=== PATIENT | male | born 1995 | race Caucasian/White ===

== ENCOUNTER 2019-10-14 19:33 | Emergency (ER) | payer BC ==
[~2019-10-14] VITALS: Ht 170.2 cm; Wt 72.6 kg
[2019-10-14 19:33] VITALS: BP 128/77
--- NOTE | 2019-10-14 20:29 | PHYS DOC ---
Past History Past Medical History: No Pertinent History Past Surgical History: Other Additional Past Surgical Histo: left arm Alcohol Use: None Drug Use: None Adult General Chief Complaint Chief Complaint: ALLERGIC REACTION HPI HPI Patient is a 24 year old male who presents with complaint of sore throat. The patient states that he was eating dinner earlier this evening and ate something that contained shrimp without his knowledge. 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 Has not had any recent allergic reaction but states that he has been tested recently and told that he is still allergic to shellfish and should not consume any. The patient states that after finding out he consumed shellfish he became concerned and thus came to the emergency department for further evaluation. He states that he has not experienced any symptoms since eating shrimp. He does note that he has been having sore throat and drainage over the past 2 days prior to this exposure but denies any fever. He states currently is not having any throat swelling or difficulty breathing and has noticed no rash. Review of Systems Review of Systems Constitutional: Denies fever or chills [] Eyes: Denies change in visual acuity, redness, or eye pain [] HENT: Sore throat, postnasal drip[] Respiratory: Denies cough or shortness of breath [] Cardiovascular: Denies chest pain or edema[] GI: Denies abdominal pain, nausea, vomiting, bloody stools or diarrhea [] : Denies dysuria or hematuria [] Musculoskeletal: Denies back pain or joint pain [] Integument: Denies rash or skin lesions [] Neurologic: Denies headache, focal weakness or sensory changes [] All other systems were reviewed and found to be within normal limits, except as documented in this note. Current Medications Current Medications Current Medications Medications (Trade) Dose Ordered Sig/Aquiles Start Time Stop Time Status Last Admin Dose Admin Dexamethasone Sodium Phosphate (Decadron) 12 mg 1X ONCE 10/14/19 20:30 10/14/19 20:31 UNV Diphenhydramine HCl (Benadryl) 25 mg 1X ONCE 10/14/19 20:30 10/14/19 20:31 UNV Famotidine (Pepcid) 20 mg 1X ONCE 10/14/19 20:30 10/14/19 20:31 UNV Allergies Allergies Allergies Coded Allergies Type Severity Reaction Last Updated Verified shrimp Allergy Unknown 10/14/19 Yes Physical Exam Physical Exam Constitutional: Alert, afebrile, no acute distress. [] HENT: Normocephalic, atraumatic, bilateral external ears normal, oropharynx mildly erythematous, bilateral tonsils 1+ with no exudates, nose normal. [] Eyes: PERRLA, EOMI, conjunctiva normal, no discharge. [] Neck: Normal range of motion, no tenderness, supple, no stridor. [] Cardiovascular:Heart rate regular rhythm, no murmur [] Lungs & Thorax: Bilateral breath sounds clear to auscultation [] Abdomen: Bowel sounds normal, soft, no tenderness, no masses, no pulsatile masses. [] Skin: Warm, dry, no erythema, no rash. [] Back: No tenderness, no CVA tenderness. [] Extremities: No tenderness, no cyanosis, no clubbing, ROM intact, no edema. [] Neurologic: Alert and oriented X 3, normal motor function, normal sensory function, no focal deficits noted. [] Current Patient Data Vital Signs Vital Signs Date Time Temp Pulse Resp B/P (MAP) Pulse Ox O2 Delivery O2 Flow Rate FiO2 10/14/19 19:33 99.1 78 18 100 Room Air Lab Results Laboratory Tests Test 10/14/19 20:30 Group A Streptococcus Rapid Negative Current Medications Medications (Trade) Dose Ordered Sig/Aquiles Route PRN Reason Start Time Stop Time Status Last Admin Dose Admin Dexamethasone Sodium Phosphate (Decadron) 12 mg 1X ONCE IM 10/14/19 20:30 10/14/19 20:38 DC 10/14/19 20:33 Diphenhydramine HCl (Benadryl) 25 mg 1X ONCE PO 10/14/19 20:30 10/14/19 20:38 DC 10/14/19 20:33 Famotidine (Pepcid) 20 mg 1X ONCE PO 10/14/19 20:30 10/14/19 20:38 DC 10/14/19 20:34 EKG EKG Not performed[] Radiology/Procedures Radiology/Procedures Not performed[] Course & Med Decision Making Course & Med Decision Making Pertinent Labs and Imaging studies reviewed. (See chart for details) Patient monitored in the emergency department with no remarkable events to report. Due to history of allergic reaction, the patient was administered a one-time dose of IM Decadron and was given oral Pepcid and Benadryl in the emergency department. Rapid strep testing negative. The patient's symptoms appear consistent with viral upper respiratory infection. Patient with no evidence of severe allergic reaction. Advised patient to continue on oral Pepcid and Benadryl as needed for itching or watering eyes. Patient also was prescribed EpiPen to have on hand in the event of a possible severe allergic reaction. Advised follow-up with primary doctor in 1 week for reevaluation and advised return to emergency department for any worsening symptoms. Patient was understanding and in agreement with treatment plan.[] Dragon Disclaimer Dragon Disclaimer This electronic medical record was generated, in whole or in part, using a voice recognition dictation system. Departure Departure: Impression: Primary Impression: Upper respiratory infection Additional Impression: Feared condition not demonstrated Disposition: 01 HOME, SELF-CARE Condition: STABLE Referrals: PCP,NO (PCP) Patient Instructions: Upper Respiratory Infection, Adult Additional Instructions: Follow-up with your primary doctor in 1 week for reevaluation. Return to the emergency department for any worsening symptoms. Scripts Epinephrine (EPIPEN 2-CATINA) 0.3 Mg/0.3 Ml Auto.injct 1 SYR IM ONCE for 1 Day, #1 PACKET 0 Refills Prov: CATRACHO HOWARD MD 10/14/19 Problem Qualifiers Primary Impression: Upper respiratory infection URI type: unspecified URI Qualified Codes: J06.9 - Acute upper respiratory infection, unspecified CATRACHO HOWARD MD Oct 14, 2019 20:28
[2019-10-14] MEDS ORDERED: diphenhydrAMINE HCL 25 MG CAPSULE PO ONE (20:30)
[2019-10-14] MEDS ORDERED: FAMOTIDINE 20 MG TABLET PO ONE (20:30)
[2019-10-14] MEDS ORDERED: DEXAMETHASONE SOD PHOS 4 MG/ML VIAL IM ONE (20:30)
[2019-10-14] MEDS ORDERED: EPIN0.3A4 IM (21:54)
== END 2019-10-14 22:10 | disposition home or self-care (01) ==
LOC: ER 19:33
DX: J06.9 Acute upper respiratory infection, unspecified (principal); Z91.013 Allergy to seafood
CPT/HCPCS: 87070; 87880; 96372; 99283; J1100; Q0163

== ENCOUNTER 2019-12-02 04:26 | Emergency (ER) | payer BC ==
[~2019-12-02] VITALS: Ht 170.2 cm; Wt 74.8 kg
[~2019-12-02 04:26] MED LIST: EPIN0.3A4 IM
--- NOTE | 2019-12-02 04:33 | PHYS DOC ---
Past History Past Medical History: No Pertinent History Past Surgical History: Other Additional Past Surgical Histo: left arm Alcohol Use: None Drug Use: None Adult General Chief Complaint Chief Complaint: ".. I ve been sick for last 2- 3 days.. nausea, vomiting... and diarrhea that will not stop... now my gut just hurt... it more up above my belly button..." HPI HPI Patient is a 24 year old male who presents with above hx and complaints of generalized abdomen pain for the last 3 days. Patient denies any intake of bad food. Recent travel to [facility] to visit his mother who is getting a kidney removed. No specific ill contacts with animals or other individuals other then his visits at the hospital. Patient states he not had abdomen pain like this before. His significant other also ate the same food that he did but she is not sick. Patient denies any dark or tarry stools. Patient states he is defecating disappear water. Has been able tolerate by mouth because it exacerbates his epigastric pain. Patient states he is normally healthy. No history immunosuppression. Does admit to using marijuana for his nausea. Patient denies heavy NSAID use. Patient did not get a flu vaccination this year. Review of Systems Review of Systems Constitutional: Subjective complaints of fever Eyes: Denies change in visual acuity, redness, or eye pain [] HENT: Denies nasal congestion or sore throat [] Respiratory: Denies cough or shortness of breath [] Cardiovascular: No additional information not addressed in HPI [] GI: Complaints of generalized abdominal pain, nausea, vomiting, and watery diarrhea [] : Denies dysuria or hematuria [] Musculoskeletal: Denies back pain or joint pain [] Integument: Denies rash or skin lesions [] Neurologic: Denies headache, focal weakness or sensory changes [] Endocrine: Denies polyuria or polydipsia [] All other systems were reviewed and found to be within normal limits, except as documented in this note. Family History Family History Mother recently had kidney failure Current Medications Current Medications See nursing for home meds Allergies Allergies Allergies Coded Allergies Type Severity Reaction Last Updated Verified shrimp Allergy Unknown 10/14/19 Yes Physical Exam Physical Exam Constitutional: Well developed, well nourished, moderate acute distress, non- toxic appearance. [] HENT: Normocephalic, atraumatic, bilateral external ears normal, oropharynx dry, no oral exudates, nose normal. [] Eyes: PERRLA, EOMI, conjunctiva normal, no discharge. [] Neck: Normal range of motion, no tenderness, supple, no stridor. [] Cardiovascular: Tachycardia Heart rate regular rhythm, no murmur [] Lungs & Thorax: Bilateral breath sounds equal apex with few scattered wheezes on auscultation [] Abdomen: Very Hyperactive Bowel sounds , soft, generalized tenderness, no masses, no pulsatile masses. [] Rebound to epigastric area Skin: Warm, dry, no erythema, no rash. [] Back: No tenderness, no CVA tenderness. [] Extremities: No tenderness, no cyanosis, no clubbing, ROM intact, no edema. No psoas sign Neurologic: Alert and oriented X 3, normal motor function, normal sensory function, no focal deficits noted. [] Psychologic: Affect anxious, judgement normal, mood normal. [] EKG EKG [] Radiology/Procedures Radiology/Procedures [][place] [address] IMAGING REPORT Signed PATIENT: LALY OG ACCOUNT: [id number] : 1995 LOCATION: ER AGE: 24 SEX: M EXAM STATUS: REG ER ORD. PHYSICIAN: GEOVANI BARRERA MD REASON: Abdomen pain, nausea, vomiting PROCEDURE: ACUTE ABDOMEN SERIES Three-view acute abdominal series HISTORY: Abdominal pain, nausea and vomiting 3 views were taken for an acute abdominal series. Lungs are clear. Heart is normal in size. There is no effusion. There is no free air on the upright view of the abdomen or abnormal air-fluid levels. Bowel pattern is normal. There are no abnormal calcifications. Spine view of the abdomen is unremarkable. IMPRESSION: 1. No acute chest disease. 2. No bowel obstruction or acute finding in the abdomen. Electronically signed by: Mariusz Costello MD (12/02/2019 5:32 AM) [facility] DICTATED AND SIGNED BY: MARIUSZ COSTELLO MD DATE: 12/02/19 0532 CC: GEOVANI BARRERA MD; PCP,NO ~ Course & Med Decision Making Course & Med Decision Making Pertinent Labs and Imaging studies reviewed. (See chart for details) Pt. remain on a clear fluid diet only. Take Zantac 300 mg twice day. Carafate 1 g 4 times a day. Use [id number] Pepto-Bismol for diarrhea episodes. Follow-up stool cultures. Follow-up primary care. Return if any concerns. Take Tylenol for pain. For marked pain may take Percocet. Take Zofran for active vomiting. Must remain on clear fluid diet no solids no milk products must allow bowel rest. If no improvement will need reexam. Impression : 1. Abdomen Pain 2. Acute gastroenteritis 3. Dehydration 4. Viral Syndrome [] Dragon Disclaimer Dragon Disclaimer This electronic medical record was generated, in whole or in part, using a voice recognition dictation system. Departure Departure: Disposition: 01 HOME/RESIDENCE PRIOR TO ADM Condition: STABLE Referrals: PCP,DIAN (PCP) Scripts Sucralfate (CARAFATE) 1 Gm Tablet 1 TAB PO QID for gastritis for 30 Days, #120 TAB 0 Refills Prov: GEOVANI BARRERA MD 12/02/19 Ranitidine Hcl (ZANTAC) 150 Mg Tablet 300 MG PO BID for gastritis for 30 Days, #120 TAB Prov: GEOVANI BARRERA MD 12/02/19 Ondansetron Hcl (ZOFRAN) 8 Mg Tablet 8 MG PO 4 times a day prn for active nausea and vomiting, #30 BOT Prov: GEOVANI BARRERA MD 12/02/19 Oxycodone Hcl/Acetaminophen (PERCOCET 5-325 MG TABLET ) 1 Each Tablet 1 TAB PO PRN Q6HRS PRN for PAIN, #30 TAB Prov: GEOVANI BARRERA MD 12/02/19 Dragon Disclaimer This chart was dictated in whole or in part using Voice Recognition software in a busy, high-work load, and often noisy Emergency Department environment. It may contain unintended and wholly unrecognized errors or omissions. GEOVANI BARRERA MD Dec 02, 2019 04:33
[2019-12-02 04:35] VITALS: BP 135/80
--- NOTE | 2019-12-02 05:35 | RAD ---
Three-view acute abdominal series HISTORY: Abdominal pain, nausea and vomiting 3 views were taken for an acute abdominal series. Lungs are clear. Heart is normal in size. There is no effusion. There is no free air on the upright view of the abdomen or abnormal air-fluid levels. Bowel pattern is normal. There are no abnormal calcifications. Spine view of the abdomen is unremarkable. IMPRESSION: 1. No acute chest disease. 2. No bowel obstruction or acute finding in the abdomen. Electronically signed by: Mariusz Garza MD (12/02/2019 5:32 AM) [facility]
[2019-12-02] MEDS ORDERED: SUCR1TAB35 PO (05:43)
[2019-12-02] MEDS ORDERED: ONDA8TAB9 PO (05:43)
[2019-12-02] MEDS ORDERED: RANI-376 PO (05:43)
[2019-12-02] MEDS ORDERED: OXYC1TAB15 PO (05:43)
[2019-12-02] MEDS ORDERED: SUCRALFATE 1 GM TABLET. PO ONE (06:00)
[2019-12-02] MEDS ORDERED: FAMOTIDINE 20 MG/2 ML VIAL IVP ONE (06:00)
[2019-12-02] MEDS ORDERED: IV RINGERS SOLUTION,LACTATED 1,000 ML IV SCH (06:00)
[2019-12-02] MEDS ORDERED: ONDANSETRON PF 4 MG/2 ML VIAL. IVP ONE (06:00)
[2019-12-02] MEDS ORDERED: MORPHINE SULFATE 10 MG/ML SYRINGE. SQ ONE (06:00)
[2019-12-02 06:18] LABS: BASO % 0 % (0-3); EOS # 0.1 x10^3/uL (0.0-0.7); EOS % 1 % (0-3); HEMATOCRIT 47.6 % (39.0-53.0); LYMPH # 0.7 x10^3/uL (1.0-4.8); LYMPH % 7 % (24-48); MEAN CORPUSCULAR HEMOGLOBIN 30 pg (25-35); MEAN CORPUSCULAR HGB CONC 34 g/dL (31-37); MEAN CORPUSCULAR VOLUME 88 fL (79-100); MONO # 1.2 x10^3/uL (0.0-1.1); MONO % 12 % (0-9); NEUT # 7.9 x10^3uL (1.8-7.7); NEUT % 80 % (31-73); PLATELET COUNT 169 x10^3/uL (140-400); RED BLOOD COUNT 5.41 x10^6/uL (4.30-5.70); WHITE BLOOD COUNT 9.8 x10^3/uL (4.0-11.0)
[2019-12-02 06:25] LABS: CALCIUM 8.4 mg/dL (8.5-10.1); GFR 90.3; POTASSIUM 3.5 mmol/L (3.5-5.1)
[2019-12-02 06:31] LABS: ALBUMIN 3.6 g/dL (3.4-5.0); DIRECT BILIRUBIN 0.1 mg/dL (0.0-0.2); TOTAL BILIRUBIN 0.3 mg/dL (0.2-1.0); TOTAL PROTEIN 6.9 g/dL (6.4-8.2)
== END 2019-12-02 08:21 | disposition home or self-care (01) ==
LOC: ER 04:26
DX: K52.9 Noninfective gastroenteritis and colitis, unspecified (principal); E86.0 Dehydration; B34.9 Viral infection, unspecified; Z91.018 Allergy to other foods
CPT/HCPCS: 36415; 74022; 80048; 80076; 83690; 84484; 85025; 85610; 85730; 96361; 96372; 96374; 96375; 99285; J2270; J2405; J3490; J7120

== ENCOUNTER → 2021-05-27 | Outpatient (CLI) | payer BC ==
[~2021-05-27] MED LIST changes: +ONDA8TAB9 PO; +OXYC1TAB15 PO; +RANI-376 PO; +SUCR1TAB35 PO
--- NOTE | 2021-05-27 10:23 | RAD ---
XR EXAM OF ANKLE_LEFT 3V History: Rolled left ankle. Left ankle pain. Comparison: None. Technique: 3 views the left ankle. Findings: Osseous mineralization is normal. No fracture or dislocaton. Ankle mortise and talar dome are intact. Mild lateral ankle swelling. Impression: 1. Mild lateral ankle swelling without acute osseous abnormality. Electronically signed by: Hemanth Ward MD (05/27/2021 10:20 AM) [facility]
== END ==
LOC: RAD 09:32
PROVIDERS: ATTEND Physician Assistant
DX: M79.89 Other specified soft tissue disorders (principal); M25.572 Pain in left ankle and joints of left foot
CPT/HCPCS: 73610